=== PATIENT | female | born 1950 | race Caucasian/White ===

== ENCOUNTER 2017-09-25 11:05 | Emergency (ER) | payer OTHER ==
[~2017-09-25] VITALS: Ht 157.5 cm; Wt 91.2 kg
[~2017-09-25 11:05] MED LIST: AMB5 PO; CELEXA20 MG PO; GOOD SENSE ASP325 MG PO; LORAZEPAM0.5 MG PO; VALIUM5 MG PO; ZOC10 PO
[2017-09-25 11:18] VITALS: Ht 157.5 cm; Wt 91.2 kg
[2017-09-25 13:22] VITALS: BP 154/69
== END 2017-09-25 13:45 | disposition home or self-care (01) ==
LOC: ED 11:05
DX: M16.12 Unilateral primary osteoarthritis, left hip (principal); E11.9 Type 2 diabetes mellitus without complications; I10 Essential (primary) hypertension; F32.9 Major depressive disorder, single episode, unspecified; F41.9 Anxiety disorder, unspecified; Z90.49 Acquired absence of other specified parts of digestive tract; Z88.0 Allergy status to penicillin
CPT/HCPCS: J1885; Q0092